=== PATIENT | female | born 1950 | race Caucasian/White ===

== ENCOUNTER 2018-06-06 10:53 | Observation (INO) | payer MEDICARE ==
[~2018-06-06] VITALS: Ht 167.1 cm; Wt 97.9 kg
[2018-06-06 11:42] LABS: BASOPHILS # (AUTO) 0.07 x10^3/uL (0-0.1); BASOPHILS % (AUTO) 1 % (0-1); EOSINOPHILS % (AUTO) 2 % (1-7); LYMPHOCYTES % (AUTO) 30 % (22-44); MD NO; MEAN CORPUSCULAR HEMOGLOBIN 27.3 pg (27.0-34.8); MEAN CORPUSCULAR HGB CONC 33.3 g/dL (32.4-35.8); MEAN CORPUSCULAR VOLUME 81.9 fL (80-100); MEAN PLATELET VOLUME 7.7 fL (7.4-10.4); MONOCYTES # (AUTO) 0.77 x10^3/uL (0.2-0.8); MONOCYTES % (AUTO) 7 % (2-9); NEUTROPHILS # (AUTO) 6.24 x10^3/uL (1.8-6.8); NEUTROPHILS % (AUTO) 60 % (42-75); PLATELET COUNT 420 x10^3/uL (130-400); RED BLOOD COUNT 5.82 x10^6/uL (3.82-5.3); RED CELL DISTRIBUTION WIDTH 14.9 % (9.6-15.2)
[2018-06-06 11:50] LABS: ALBUMIN 3.7 g/dL (3.4-5.0); ANION GAP 7 mmol/L (5-15); CALCIUM 9.4 mg/dL (8.5-10.1); CHLORIDE 102 mmol/L (98-107); CREATININE 1.12 mg/dL (0.55-1.02)
--- NOTE | 2018-06-06 15:13 | NUR ---
DR. DSOUZA AT BEDSIDE. PT COMPLAINS OF DIZZINESS AND HIGH BLOOD PRESSURE. PT STATES THAT SHE FEELS LIKE HER EYES ARE FLUTTERING AND TAKE A WHILE TO ADJUST. PT PLACED ON CONT. SPO2 AND BP MONITOR, VSS.
--- NOTE | 2018-06-06 15:26 | NUR ---
PT TO CT
[2018-06-06 16:21] LABS: TROPONIN I < 0.015 ng/mL (0.000-0.045)
[2018-06-06] MEDS ORDERED: ROSU20TA PO (17:07)
[2018-06-06] MEDS ORDERED: LOSA1TAB25 PO (17:07)
[2018-06-06] MEDS ORDERED: EMPA25TA PO (17:07)
[2018-06-06] MEDS ORDERED: GLIM4TAB2 PO (17:07)
[2018-06-06] MEDS ORDERED: OMEP-110 PO (17:07)
[2018-06-06] MEDS ORDERED: HYDR25TA6 PO (17:07)
[2018-06-06] MEDS ORDERED: LINA5TAB PO (17:07)
[2018-06-06] MEDS ORDERED: CLOP75TA PO (17:07)
--- NOTE | 2018-06-06 17:14 | NUR ---
JOSE G REGALADO ([facility])- [phone]
--- NOTE | 2018-06-06 18:30 | NUR ---
DIET TRAY ORDERED
--- NOTE | 2018-06-06 18:38 | NUR ---
REPORT GIVEN TO JOCELYN VERDIN
[2018-06-06] MEDS ORDERED: morphine SULFATE 10 MG/ML, 1ML IVPush PRN (19:00)
[2018-06-06] MEDS ORDERED: ACETAMINOPHEN 325 MG TABLET PO PRN (19:00)
[2018-06-06] MEDS ORDERED: BISACODYL 10 MG SUPP PR PRN (19:00)
[2018-06-06] MEDS ORDERED: POLYETHYLENE GLYCOL 17 GM PACKET PO PRN (19:00)
[2018-06-06] MEDS ORDERED: LABETALOL 5MG/ML, 20ML IVPush PRN (19:00)
[2018-06-06] MEDS ORDERED: IBUPROFEN 600 MG TABLET PO PRN (19:00)
[2018-06-06] MEDS ORDERED: LINAGLIPTIN 5 MG TAB PO SCH (19:00)
[2018-06-06] MEDS ORDERED: DOCUSATE 100 MG CAPSULE PO PRN (19:00)
[2018-06-06 19:33] LABS: CHOL/HDL RATIO 5.6; LDL/HDL RATIO 3.4 (0.5-3.0); THYROID STIMULATING HORMONE 1.59 mIU/L (0.358-3.740)
[2018-06-06 19:47] VITALS: BP 122/77
[2018-06-06] MEDS ORDERED: LOSA100T14 PO (19:56)
[2018-06-06] MEDS ORDERED: OLME1TAB44 PO (19:56)
[2018-06-06] MEDS ORDERED: ATORVASTATIN 80 MG TABLET PO SCH (21:00)
[2018-06-06] MEDS: LOSARTAN 50MG TABLET PO SCH (22:19)
[2018-06-06] MEDS: HYDROCHLOROTHIAZIDE 25 MG TABLET PO SCH (22:19)
[2018-06-06] MEDS ORDERED: CLOPIDOGREL 75 MG TABLET PO SCH (22:20)
[2018-06-06] MEDS: GLIMEPIRIDE 4 MG TABLET PO SCH (22:20)
[2018-06-06] MEDS ORDERED: OMNIPAQUE 350 MG/ML, 100ML BOTTLE ONE (22:44)
[2018-06-07 02:25] VITALS: BP 110/70
[2018-06-07 05:17] LABS: BASOPHILS # (AUTO) 0.07 x10^3/uL (0-0.1); BASOPHILS % (AUTO) 1 % (0-1); EOSINOPHILS # (AUTO) 0.28 x10^3/uL (0-0.4); EOSINOPHILS % (AUTO) 3 % (1-7); LYMPHOCYTES # (AUTO) 2.21 x10^3/uL (1-3.4); LYMPHOCYTES % (AUTO) 26 % (22-44); MD NO; MEAN CORPUSCULAR HEMOGLOBIN 27.2 pg (27.0-34.8); MEAN CORPUSCULAR HGB CONC 33.4 g/dL (32.4-35.8); MEAN CORPUSCULAR VOLUME 81.4 fL (80-100); MEAN PLATELET VOLUME 7.6 fL (7.4-10.4); MONOCYTES # (AUTO) 0.69 x10^3/uL (0.2-0.8); MONOCYTES % (AUTO) 8 % (2-9); NEUTROPHILS # (AUTO) 5.16 x10^3/uL (1.8-6.8); NEUTROPHILS % (AUTO) 61 % (42-75); PLATELET COUNT 376 x10^3/uL (130-400); RED BLOOD COUNT 5.76 x10^6/uL (3.82-5.3); RED CELL DISTRIBUTION WIDTH 14.9 % (9.6-15.2)
[2018-06-07 05:22] LABS: ANION GAP 4 mmol/L (5-15); CHLORIDE 102 mmol/L (98-107); CREATININE 1.02 mg/dL (0.55-1.02)
[2018-06-07 07:07] VITALS: BP 123/75
[2018-06-07] MEDS: LOSARTAN 50MG TABLET PO SCH (08:28)
[2018-06-07] MEDS: HYDROCHLOROTHIAZIDE 25 MG TABLET PO SCH (08:29)
[2018-06-07] MEDS: GLIMEPIRIDE 4 MG TABLET PO SCH (08:29)
[2018-06-07] MEDS ORDERED: TEMPLATE NON-FORMULARY MED. (Clopidogrel Bisulfate** (Clopidogrel**) 75 MG) PO SCH (09:00)
[2018-06-07] MEDS ORDERED: LINAGLIPTIN 5 MG TAB PO SCH ×2 (09:00→18:00)
[2018-06-07] MEDS ORDERED: OMEPRAZOLE 20 MG CAPSULE.DR PO SCH (09:00)
[2018-06-07] MEDS ORDERED: GLIMEPIRIDE 4 MG TABLET PO SCH (09:00)
[2018-06-07] MEDS ORDERED: CLOPIDOGREL 75 MG TABLET PO SCH (09:00)
[2018-06-07] MEDS ORDERED: HYDROCHLOROTHIAZIDE 25 MG TABLET PO SCH (09:00)
== END 2018-06-07 13:22 | disposition home or self-care (01) ==
LOC: ED 16:21 → INTOOBSV 17:16 → EDIP 17:16 → 4WST 18:55
PROVIDERS: ADMIT Family Medicine; ATTEND Family Medicine
DX: R42 Dizziness and giddiness (principal); I10 Essential (primary) hypertension; E11.9 Type 2 diabetes mellitus without complications; E78.5 Hyperlipidemia, unspecified; F41.9 Anxiety disorder, unspecified; E66.9 Obesity, unspecified; K21.9 Gastro-esophageal reflux disease without esophagitis; Z79.02 Long term (current) use of antithrombotics/antiplatelets; Z86.73 Personal history of transient ischemic attack (TIA), and cerebral infarction without residual deficits; Z87.891 Personal history of nicotine dependence
CPT/HCPCS: 36415; 70450; 70496; 70498; 70551; 80048; 80061; 82040; 82962; 83735; 84100; 84443; 84484; 85025; 93005; 99284; G0378; Q9967

== ENCOUNTER 2019-12-16 08:46 | Emergency (ER) | payer MEDICARE ==
[~2019-12-16] VITALS: Ht 167.6 cm; Wt 96.0 kg
[~2019-12-16 08:46] MED LIST: CLOP75TA PO; EMPA25TA PO; GLIM4TAB8 PO; HYDR25TA6 PO; LINA5TAB PO; LOSA100T14 PO; LOSA1TAB25 PO; OLME1TAB86 PO; OMEP-110 PO; ROSU20TA2 PO
--- NOTE | 2019-12-16 08:59 | NUR ---
PT BROUGHT BACK FROM TRIAGE WITH CHIEF COMPLAINT OF ABD DISCOMFORT FOR ONE WEEK WITH INTERMITTENT DIARRHEA. HX GI "ISSUES".
[2019-12-16] MEDS ORDERED: MORPHINE SULFATE 4 MG/ML, 1ML ONE (09:15)
[2019-12-16] MEDS ORDERED: ONDANSETRON 2MG/ML, 2ML ONE (09:15)
[2019-12-16] MEDS ORDERED: MAALOX/HYOSCYAMINE/LIDOCAINE 45 ML BTL ONE (09:16)
[2019-12-16] MEDS ORDERED: FAMOTIDINE 20 MG/2 ML ONE (09:16)
[2019-12-16] MEDS ORDERED: ONDANSETRON 2MG/ML, 2ML IVPush ONE (09:30)
[2019-12-16] MEDS ORDERED: MAALOX/HYOSCYAMINE/LIDOCAINE 45 ML BTL PO ONE (09:30)
[2019-12-16] MEDS ORDERED: SODIUM CHLORIDE 0.9% 1,000ML IVBOLUS ONE (09:30)
[2019-12-16] MEDS ORDERED: MORPHINE SULFATE 4 MG/ML, 1ML IVPush PRN (09:30)
[2019-12-16] MEDS ORDERED: SODIUM CHLORIDE FLUSH 10ML SYR IVF ONE (09:30)
[2019-12-16] MEDS ORDERED: FAMOTIDINE 20 MG/2 ML IV ONE (09:30)
[2019-12-16 09:42] LABS: MICROSCOPIC AUTO
[2019-12-16 09:46] LABS: ALANINE AMINOTRANSFERASE 37 U/L (12-78); ALBUMIN 3.5 g/dL (3.4-5.0); ANION GAP 8 mmol/L (5-15); CHLORIDE 105 mmol/L (98-107); CREATININE 0.97 mg/dL (0.55-1.02)
[2019-12-16 09:49] LABS: ALKALINE PHOSPHATASE 101 U/L (45-117); BILIRUBIN,TOTAL 0.3 mg/dL (0.2-1.0)
--- NOTE | 2019-12-16 09:53 | NUR ---
Pt resting in bed, aware of needed stool sample.
[2019-12-16 10:00] LABS: BASOPHILS # (AUTO) 0.04 x10^3/uL (0-0.1); BASOPHILS % (AUTO) 1 % (0-1); EOSINOPHILS % (AUTO) 2 % (1-7); LYMPHOCYTES # (AUTO) 2.32 x10^3/uL (1-3.4); LYMPHOCYTES % (AUTO) 25 % (22-44); MD NO; MEAN CORPUSCULAR HGB CONC 32.7 g/dL (32.4-35.8); MEAN CORPUSCULAR VOLUME 82.6 fL (80-100); MEAN PLATELET VOLUME 8.4 fL (7.4-10.4); MONOCYTES # (AUTO) 0.69 x10^3/uL (0.2-0.8); MONOCYTES % (AUTO) 7 % (2-9); NEUTROPHILS # (AUTO) 6.11 x10^3/uL (1.8-6.8); NEUTROPHILS % (AUTO) 65 % (42-75); PLATELET COUNT 364 x10^3/uL (130-400); RED BLOOD COUNT 5.31 x10^6/uL (3.82-5.3); RED CELL DISTRIBUTION WIDTH 15.2 % (9.6-15.2)
[2019-12-16] MEDS ORDERED: OMNIPAQUE 350 MG/ML, 100ML BOTTLE ONE (10:24)
[2019-12-16] MEDS ORDERED: CEFTRIAXONE PMX 1GM/50ML 50 ML ONE (10:26)
[2019-12-16] MEDS ORDERED: CEFTRIAXONE PMX 1GM/50ML 50 ML IV ONE (10:30)
[2019-12-16 10:32] VITALS: BP 158/84
--- NOTE | 2019-12-16 11:00 | NUR ---
STEADY AMBULATION TO BATHROOM.
--- NOTE | 2019-12-16 11:22 | NUR ---
ERMD AT BEDSIDE TO DISCUSS POC
--- NOTE | 2019-12-16 11:26 | NUR ---
DC instructions reviewed
== END 2019-12-16 11:44 | disposition home or self-care (01) ==
LOC: ED 09:16
DX: N30.00 Acute cystitis without hematuria (principal); R19.7 Diarrhea, unspecified; K21.9 Gastro-esophageal reflux disease without esophagitis; E78.5 Hyperlipidemia, unspecified; E11.9 Type 2 diabetes mellitus without complications; Z86.73 Personal history of transient ischemic attack (TIA), and cerebral infarction without residual deficits; Z88.0 Allergy status to penicillin; Z87.891 Personal history of nicotine dependence; Z88.6 Allergy status to analgesic agent
CPT/HCPCS: 36415; 74177; 80053; 81001; 83690; 85025; 87040; 87086; 96361; 96365; 96375; 99285; J0696; J2405; J3490; J7030; Q9967